=== PATIENT | female | born 1965 | race African-American/Black ===

== ENCOUNTER 2022-10-28 08:22 | Outpatient (OUT) | payer OTHER, SELFPAY ==
--- NOTE | 2022-10-28 08:15 | P.CN_ITS ---
Consult Note: HPI Data of Consult Patient: new to practice Requesting Physician: Jannie Cash NP Primary Care Provider: Vanessa Damon MD Consult Narrative Narrative: Yumiko Bradford a pleasant 56 year old female presents for evaluation of chronic low back and left hip. Today rating pain 6-7/10. Has not been evaluated since February of 2018. Recent imaging of left hip, will review. Has been seen by Dr Damon in the past and chiropractor with mild to no relief. Has tried ketorolac, cyclobenzaprine, and tumeric without benefit. Is interested in injection therapy. cc:: CC: Jannie Cash NP Review of Systems ROS Status of ROS 10 or more systems reviewed and unremarkable except as noted in history and below Musculoskeletal Reports: back pain and joint pain Exam Constitutional Documenting provider has reviewed patient's vital signs: yes Common normals: no apparent distress, oriented x3, healthy appearing, alert and well nourished General appearance: cooperative HENMT Common normals: normocephalic, hearing grossly normal bilaterally and moist oral mucous membranes Head and scalp: normocephalic Eye Common normals: PERRL Pupil: PERRL Neck & C-Spine Common normals: full ROM General: normal visual inspection Chest Common normals: inspection of chest normal Respiratory Common normals: normal respiratory effort, no retractions and no use of accessory muscles Back & Pelvis Lumbar spine/lower back: ROM limited and pain with ROM Sacroiliac joints: SI joint(s) abnormal Other: predominately axial low back pain, worse with twisting bending flexion and extension. No radiculopathy. No tenderness over GTB, negative hip exam. Tenderness over PSIS on left side. Extremity Common normals: normal to inspection and full ROM Neuro Common normals: oriented x3, CN's II-XII intact bilaterally, moves all extremities, no focal motor deficits, no sensory deficits noted and deep tendon reflexes 2+ bilaterally Sensorium/orientation: alert Gait (neuro): normal gait Motor exam: strength 5/5 throughout and no movement abnormalities noted Psych Common normals: mental status grossly normal, thought process normal, cooperative, affect normal, speech normal and activity/motor behavior normal Speech: normal speech Thought process: normal thought process Results Additional Findings Additional findings: A drug screen was completed and reviewed within the last year, and if there has not been a drug screen completed we ordered one today to monitor higher risk, state monitored pain medication use. As part of providing excellent, safe, comprehensive care, the following was completed at our patient's visit: 1. A medication reconciliation and review to ensure accurate knowledge of current/active medications, including asking our patients to inform us about any [id number] medications or herbal remedies/nutritional supplements/alternative remedies. 2. A review to specifically ensure our patients have had annual screening for: elevated body mass index (BMI), tobacco use, screening for depression, and screening for unhealthy alcohol use. When screening is concerning, patients are provided with education and the specific recommendation to discuss the concerning health issue and treatment options with their primary care provider. Assessment and Plan Assessment and Plan (1) Lumbar spondylosis: Assessment and Plan: The patient has had over 3 months of moderate to severe low back pain with functional impairment and inadequate response to conservative care including NSAIDS (unless there are contraindication such as concurrent blood thinners), multiple oral or topical pain medications, and home exercise program/physical therapy.? Patient has completed >6 weeks of guided home exercise program and/or formal physical therapy program without relief of their symptoms.? I have reviewed the imaging of the lumbar spine and no red flags were identified.? The imaging reveals radiographic findings consistent with lumbar facet arthropathy The Oswestry Disability Index was completed, and the patient scored a 28%.?? We discussed the risks and benefits of the procedure with the patient, and we are NOT planning on using sedation as outlined in the guidelines from Medicare unless there is a documented reason that sedation would be strongly recommended.?? ?The procedure will be completed with fluoroscopic guidance.? (2) Myalgia: (3) Sacroiliitis: Plan based on physical exam and x-ray findings will schedule left L3-4 L4-5 MBB x2 under fluoroscopy working towards thermal RFA if provides greater than 80% functional improvement and pain relief [employer] reviewed and signed start duloxetine 30mg HS start transdermal therapeutics topical cream TID-QID continue HEP f/u 1 month to discuss increasing duloxetine if needed and evaluate effectiveness of procedure
== END 2022-10-28 08:23 | disposition home or self-care (01) ==
PROVIDERS: PCP Family Medicine; Visit Provider Nurse Practitioner
DX: M47.816 Spondylosis without myelopathy or radiculopathy, lumbar region (principal); M46.1 Sacroiliitis, not elsewhere classified; M79.10 Myalgia, unspecified site
CPT/HCPCS: G0463

== ENCOUNTER 2022-11-23 07:34 | Day surgery (SDC) | payer OTHER, SELFPAY ==
[2022-11-23 08:00] VITALS: BP 151/97; PULSE 86; RESP 16; TEMP 36.6; O2SAT 99
--- NOTE | 2022-11-23 08:49 | W.PM.PROCNOT ---
Date of procedure: 11/23/22 Pre-op diagnosis: Lumbar spondylosis Post-op diagnosis: same as pre-op Procedure: Procedure: Left L3, 4, 5 medial branch block Medications: Bupivacaine 0.25% 4cc The patient was seen and examined in the preoperative holding area.? An informed consent was obtained and placed on the chart.? The patient was brought to the medical procedure unit and placed in the prone position.? A timeout was completed verifying correct patient, procedure site, positioning, plan, and special equipment.? Using aseptic technique, the needle was placed at left L3. Under direct fluoroscopic visualization a Quincke-tipped spinal needle was advanced to the junction of the superior articulating process with the transverse process at the designated medial branch segment.? Preceded by negative aspiration, the above-mentioned injectate was placed in 1 mL aliquots.? The procedure was completed at left L4, 5.? The needle was removed and insertion site was covered.? The patient was taken to the postprocedural recovery area and monitored for an appropriate length of time before found suitable for discharge in the company of a responsible adult. Anesthesia: Local Surgeon: Patrizia Orosco Pathology: none sent Condition: stable Disposition: same day
[2022-11-23] MEDS: LIDOCAINE HCL 2% PF 100 MG/5 ML VIAL INJ (08:51)
[2022-11-23] MEDS: BUPIVACAINE HCL 0.5% PF 50 MG/10 ML VIAL 4 ML INJ (08:51)
[2022-11-23] MEDS: TRIAMCINOLONE ACETONIDE 40 MG/ML VIAL INJ (08:52)
[2022-11-23 08:53] VITALS: BP 152/85; BP 158/96; PULSE 100; PULSE 82; RESP 16; O2SAT 96; O2SAT 97
== END 2022-11-23 08:54 | disposition home or self-care (01) ==
PROVIDERS: PCP Family Medicine; Visit Provider Anesthesiology
DX: M47.816 Spondylosis without myelopathy or radiculopathy, lumbar region (principal)
CPT/HCPCS: 64493; 64494

== ENCOUNTER 2022-12-03 08:22 | Outpatient (OUT) | payer OTHER, SELFPAY ==
--- NOTE | 2022-12-03 08:29 | PM.CN ---
Consult Note: HPI Data of Consult Patient: new to practice Requesting Physician: Jannie Cash NP Primary Care Provider: Vanessa Damon MD Consult Narrative Narrative: Yumiko Bradford a pleasant 56 year old female presents for evaluation of chronic low back and left hip. Today rating pain 5/10 in low back and left hip. Describes it as a nagging toothache, Has not tried tylenol ibuprofen at home. cc:: CC: Jannie Cash NP Review of Systems ROS Status of ROS 10 or more systems reviewed and unremarkable except as noted in history and below Musculoskeletal Reports: back pain and joint pain PFSH PFSH Medical History Back pain ?M54.9 - Dorsalgia, unspecified (ICD-10) Hypothyroid ?E03.9 - Hypothyroidism, unspecified (ICD-10) Irregular heart beat ?I49.9 - Cardiac arrhythmia, unspecified (ICD-10) Smoker ?F17.200 - Nicotine dependence, unspecified, uncomplicated (ICD-10) Surgical History H/O breast augmentation ?Z98.82 - Breast implant status (ICD-10) H/O: hysterectomy ?Z90.710 - Acquired absence of both cervix and uterus (ICD-10) Status post trigger finger release ?Z98.890 - Other specified postprocedural states (ICD-10) Meds Home Medications and Allergies Home Medications Medication Instructions Recorded Confirmed Type cyclobenzaprine 5 mg tablet 5 mg PO DAILY 10/28/22 11/23/22 History ketorolac 10 mg tablet 10 mg PO BID 10/28/22 11/23/22 History milk thistle 150 mg capsule 150 mg PO DAILY 10/28/22 11/23/22 History turmeric 400 mg capsule 1,000 mg PO DAILY 10/28/22 11/23/22 History Allergies Allergy/AdvReac Type Severity Reaction Status Date / Time No Known Drug Allergies Allergy Verified 11/23/22 07:58 Exam Constitutional Documenting provider has reviewed patient's vital signs: yes Common normals: no apparent distress, oriented x3, healthy appearing, alert and well nourished General appearance: cooperative HENMT Common normals: normocephalic, hearing grossly normal bilaterally and moist oral mucous membranes Head and scalp: normocephalic Eye Common normals: PERRL Pupil: PERRL Neck & C-Spine Common normals: full ROM General: normal visual inspection Chest Common normals: inspection of chest normal Respiratory Common normals: normal respiratory effort, no retractions and no use of accessory muscles Back & Pelvis Lumbar spine/lower back: ROM limited and pain with ROM Sacroiliac joints: SI joint(s) abnormal Other: predominately axial low back pain, worse with twisting bending flexion and extension. No radiculopathy. No tenderness over GTB, negative hip exam. Tenderness over PSIS on left side. Pain with thigh thrust, gaenslens, and JUAN. pain with external rotation of hip Extremity Common normals: normal to inspection and full ROM Neuro Common normals: oriented x3, CN's II-XII intact bilaterally, moves all extremities, no focal motor deficits, no sensory deficits noted and deep tendon reflexes 2+ bilaterally Sensorium/orientation: alert Gait (neuro): normal gait Motor exam: strength 5/5 throughout and no movement abnormalities noted Psych Common normals: mental status grossly normal, thought process normal, cooperative, affect normal, speech normal and activity/motor behavior normal Speech: normal speech Thought process: normal thought process Assessment and Plan Assessment and Plan (1) Lumbar spondylosis: (2) Myalgia: (3) Sacroiliitis: (4) Chronic left hip pain: (5) Bilateral sacroiliitis: Plan -patient did not benefit from MBB at L3-4 L4-5, continues to have low back and left hip pain without radiculopathy -increase duloxetine to 60mg HS -continue HEP -continue f/u with NS -discussed left hip injection vs referral to orthopedics for left hip spurring -f/u 6 weeks to discuss medication titration
== END 2022-12-03 08:23 | disposition home or self-care (01) ==
PROVIDERS: PCP Family Medicine; Visit Provider Nurse Practitioner
DX: M47.896 Other spondylosis, lumbar region (principal); M79.10 Myalgia, unspecified site; M46.1 Sacroiliitis, not elsewhere classified; M25.552 Pain in left hip
CPT/HCPCS: G0463

== ENCOUNTER 2024-04-04 11:24 | Emergency (ER) | payer OTHER, SELFPAY ==
[2024-04-04 11:29] VITALS: BP 121/74; PULSE 106; TEMP 37; O2SAT 98; BMI 24.2
--- OUTSIDE RECORDS SUMMARY | 2024-04-04 11:47 | XMS_ITS | CCD ---
Author Organization [facility] Inform ion Partnership [facility] Care Team Providers Care Toy Maker Name Role Phone DR VANESSA IRELAND Attending Unavailable SHU, DR VANESSA Navas Primary Care Unavailable DR VANESSA IRELAND Admitting Unavailable DR MYRANDA INGRAM Consulting Unavailable SHU, DR VANESSA Navas Consulting Unavailable Vanessa Ireland Unavailable Sherie Anderson Unavailable MD Vanessa Ireland Primary Care Provider [phone] AUSTEN Anderson Attending Provider Sherie Anderson Attending Unavailable Sherie Anderson Admitting Unavailable Vansesa Ireland Primary Care Unavailable Ana Luisa SHERIDAN, Patrizia Lauren Attending Unavailable Allergies Allergy Classification Reported Allergen(s) Allergy Type Date of Onset Reaction(s) Facility (5 sources) Corticosteroids Propensity to adverse reactions 04-10-19 Unknown [facility] Other (5 sources) Allergies Reconciled Propensity to adverse reactions Unknown [facility] Other Medications Current Medications Medication Drug Class(es) Dates Sig (Normalized) Sig (Original) Biotin (4 sources) Biotin Active cyclobenzaprine hydrochloride 5 mg oral tablet (4 sources) Muscle Relaxant Start: 09-15-2022 take 1 tablet by mouth every twenty-four hours Cyclobenzaprine HCl 5 MG 1 tablet at bedtime as needed Orally Once a day for 30 days Sep, Active ketorolac tromethamine 10 mg oral tablet (4 sources) Nonsteroidal Anti-inflammatory Drug, Cyclooxygenase Inhibitor Start: 09-15-2022 take 1 tablet by mouth every six hours at mealtime as needed Ketorolac Tromethamine 10 MG 1 tablet with food or milk as needed Orally every 6 hrs for 5 days Sep, Active lidocaine 0.05 mg/mg medicated patch (4 sources) Antiarrhythmic, Amide Local Anesthetic Start: 09-15-2022 Lidocaine 5 % 1 patch remove after 12 hours Externally Once a day for 30 days Sep, Active Milk thistle extract (4 sources) Milk Thistle Act suraj Problems Active Problems Problem Classification Problem Date Documented Da te Episodic/Chronic Anxiety disorders (5 sources) Anxiety disorder; Translations: [Anxiety disorder, unspecified] Onset: 4 Chronic Esophageal disorders (5 sources) Gastroesophageal reflux disease without esophagitis; Translations: [Gastro-esophageal reflux disease without esophagitis] Onset: 5 Chronic Other connective tissue disease (1 source) Trochanteric bursitis, left hip Episodic Other gastrointestinal disorders (5 sources) Irritable bowel syndrome characterized by constipation; Translations: [Irritable bowel syndrome with constipation] Chronic Other non-traumatic joint disorders (2 sources) Pain in left hip Episodic Residual codes; unclassified (5 sources) Normal body mass index; Translations: [Body mass index (BMI) 22.0-22.9, adult] Episodic Residual codes; unclassified (5 sources) Procedure not done; Translations: [Procedure and treatment not carried out because of patient's decision for unspecified reasons] Episodic Residual codes; unclassified (2 sources) Asymptomatic menopausal state Episodic Screening and history of mental health and substance abuse codes (2 sources) Encounter for screening for depression Episodic Spondylosis; intervertebral disc disorders; other back problems (9 sources) Other intervertebral disc degeneration, lumbosacral region; Translations: [Inflammation of sacroiliac joint] Onset: 2 Chronic Spondylosis; intervertebral disc disorders; other back problems (8 sources) Low back pain; Translations: [Low back pain, unspecified] Onset: 3 Episodic Thyroid disorders (14 sources) Hypothyroidism, unspecified; Translations: [Hypothyroidism] Onset: 8 Chronic Unclassified (1 source) LOW BACK PAIN, UNSPECIFIED; Translations: [LOW BACK PAIN, UNSPECIFIED] Onset: 2 Past or Other Problems Problem Classification Problem Date Documented Da te Episodic/Chronic Other upper respiratory infections (5 sources) Acute upper respiratory infection; Translations: [Acute upper respiratory infection, unspecified] Onset: 01-21-2015 Episodic Unclassified (1 source) Low back pain, unspecified M54.50 Results Test Name Value Interpretation Reference Range Facility XR hip LT min 2V(w/wo pelvis )*on 09-15-2022 XR hip LT min 2V(w/wo pelvis)* [address] [address] XRay Report Signed Patient: Yumiko Bradford MR#: [id number] 4 : 1965 Acct:[id number] Age/Sex: 56 / F ADM Date: 09/15/22 Loc: XD Room: Type: [facility] Attending Dr: Sherie Anderson NP-C Copies to: AUSTEN Hartman Ordering Provider: AUSTEN Hartman Date of Service: 09/15/22 XR/XR hip LT min 2V(w/wo pelvis)*: M54.16 2 views LEFT plain film COMPARISON: None HISTORY: Low back pain. LEFT hip pain. ACUTE FINDINGS: None DEGENERATIVE CHANGE: Mild LEFT hip degeneration. Large superior greater trochanter spurring. SOFT TISSUE FINDINGS: Unremarkable JOINT EFFUSION: None POSTOP CHANGES: None BONY MINERALIZATION: Adequate XR/XR hip LT min 2V(w/wo pelvis)* IMPRESSION: Mild degeneration. Large superior greater trochanter spurring. Impression dictated by: Sascha Kumar M.D.09/15/2022 2:27 PM Dictation Location: [place] [address] Transcribed By: [facility] 09/15/22 1427 Dictated By: Sascha Kumar DO 09/15/22 1426 Signed By: 09/15/22 1427 Normal [facility] XR hip LT min 2V(w/wo pelvis)* [facility] [employer] Other XR hip LT min 2V(w/wo pelvis)* [facility] [employer] Other XR hip LT min 2V(w/wo pelvis)* [address] [place] [address] [employer] Other XR hip LT min 2V(w/wo pelvis)* [place] [id number] [facility] [employer] Other XR hip LT min 2V(w/wo pelvis)* XRay Report [facility] Other XR hip LT min 2V(w/wo pelvis)* Signed [facility] Other XR hip LT min 2V(w/wo pelvis)* Patient: Yumiko Bradford MR#: [id number] [facility] Other XR hip LT min 2V(w/wo pelvis)* 4 [facility] Other XR hip LT min 2V(w/wo pelvis)* : 1965 Acct:[id number] [facility] Other XR hip LT min 2V(w/wo pelvis)* Age/Sex: 56 / F ADM Date: 09/15/22 [facility] Other XR hip LT min 2V(w/wo pelvis)* Loc: XD Room: Type: [facility] Other XR hip LT min 2V(w/wo pelvis)* Attending Dr: Sherie BOYCE [facility] Other XR hip LT min 2V(w/wo pelvis)* Copies to: AUSTEN Hartman [facility] Other XR hip LT min 2V(w/wo pelvis)* Ordering Provider: AUSTEN Hartman [facility] Other XR hip LT min 2V(w/wo pelvis)* Date of Service: 09/15/22 [facility] Other XR hip LT min 2V(w/wo pelvis)* XR/XR hip LT min 2V(w/wo pelvis)*: M54.16 [facility] Other XR hip LT min 2V(w/wo pelvis)* 2 views LEFT plain film [facility] Other XR hip LT min 2V(w/wo pelvis)* COMPARISON: None [facility] Other XR hip LT min 2V(w/wo pelvis)* HISTORY: Low back pain. LEFT hip pain. [facility] Other XR hip LT min 2V(w/wo pelvis)* ACUTE FINDINGS: None [employer] Other XR hip LT min 2V(w/wo pelvis)* DEGENERATIVE CHANGE: Mild LEFT hip degeneration. Large superior greater trochanter spurring. [facility] Other XR hip LT min 2V(w/wo pelvis)* SOFT TISSUE FINDINGS: Unremarkable [facility] Other XR hip LT min 2V(w/wo pelvis)* JOINT EFFUSION: None [facility] Other XR hip LT min 2V(w/wo pelvis)* POSTOP CHANGES: None [facility] Other XR hip LT min 2V(w/wo pelvis)* BONY MINERALIZATION: Adequate [facility] Other XR hip LT min 2V(w/wo pelvis)* XR/XR hip LT min 2V(w/wo pelvis)* [facility] Other XR hip LT min 2V(w/wo pelvis)* IMPRESSION: Mild degeneration. Large superior greater trochanter spurring. [facility] Other XR hip LT min 2V(w/wo pelvis)* Impression dictated by: Sascha Kumar M.D.09/15/2022 2:27 PM [facility] Other XR hip LT min 2V(w/wo pelvis)* Dictation Location: [place] [address] [facility] Other XR hip LT min 2V(w/wo pelvis)* Transcribed By: DURGA 09/15/22 1427 [facility] Other XR hip LT min 2V(w/wo pelvis)* Dictated By: Sascha Kumar DO 09/15/22 1426 [facility] Other XR hip LT min 2V(w/wo pelvis)* Signed By: [facility] Other XR hip LT min 2V(w/wo pelvis)* 09/15/22 1427 [facility] Other XR lumbar spine 6V w bending on 09-15-2022 XR lumbar spine 6V w bending [place] [address] [place] [address] XRay Report Signed Patient: Yumiko Bradford MR#: [id number] 4 : 1965 Acct:[id number] Age/Sex: 56 / F ADM Date: 09/15/22 Loc: XD Room: Type: [facility] Attending Dr: Sherie BOYCE Copies to: AUSTEN Hartman Ordering Provider: AUSTEN Hartman Date of Service: 09/15/22 XR/XR lumbar spine 6V w bending: M54.16 6 views Lumbar Spinewith bending HISTORY: Low back pain and LEFT hip pain COMPARISON: None POSTSURGICAL CHANGES: None BONY ALIGNMENT: No hypermobility. 6 mm L4-5 anterolisthesis FRACTURE: None DEGENERATIVE CHANGES: Extensive L5-S1 spondylosis. Moderate L3-4 no L4-5 spondylosis. Extensive lower lumbar hypertrophic facet changes. SOFT TISSUES: Unremarkable BONY MINERALIZATION:[place] te XR/XR lumbar spine 6V w bending IMPRESSION: No hypermobility. 6 mm L4-5 anterolisthesis. Extensive lower lumbar degeneration. Impression dictated by: Sascha Kumar M.D.09/15/2022 2:21 PM Dictation Location: [place] [address] Transcribed By: [facility] 09/15/22 142 Dictated By: Sascha Kumar DO 09/15/22 141 Signed By: 09/15/22 142 Normal [facility] XR lumbar spine 6V w bending XR/XR lumbar spine 6V w bending: M54.16 [email or web address] [facility] [employer] Other XR lumbar spine 6V w bending 6 views Lumbar Spinewith bending [facility] Other XR lumbar spine 6V w bending HISTORY: Low back pain and LEFT hip pain [facility] Other XR lumbar spine 6V w bending POSTSURGICAL CHANGES: None [facility] Other XR lumbar spine 6V w bending BONY ALIGNMENT: No hypermobility. 6 mm L4-5 anterolisthesis [facility] Other XR lumbar spine 6V w bending FRACTURE: None [facility] Other XR lumbar spine 6V w bending DEGENERATIVE CHANGES: Extensive L5-S1 spondylosis. Moderate L3-4 no L4-5 spondylosis. Extensive [facility] Other XR lumbar spine 6V w bending lower lumbar hypertrophic facet changes. [facility] Other XR lumbar spine 6V w bending SOFT TISSUES: Unremarkable [facility] Other XR lumbar spine 6V w bending XR/XR lumbar spine 6V w bending [facility] Other XR lumbar spine 6V w bending IMPRESSION: No hypermobility. 6 mm L4-5 anterolisthesis. Extensive lower lumbar degeneration. [facility] Other XR lumbar spine 6V w bending Impression dictated by: Sascha Kumar M.D.09/15/2022 2:21 PM [facility] Other XR lumbar spine 6V w bending Transcribed By: PWS 09/15/22 [facility] Other XR lumbar spine 6V w bending Dictated By: Sascha Kumar DO 09/15/22 141 [facility] Other XR lumbar spine 6V w bending 09/15/22 [facility] Other CULTURE URINEon 04-15-2021 CULTURE URINE Culture Observations : NO GROWTH. Normal The [facility] Comment on above: Performed By: #### U RCX #### [facility] [address] [place] [address] Dr. Alin Husain FREE T4on 04-15-2021 Free T4 [Mass/Vol] 0.85 ng/dL Normal 0.78-2.19 [facility] Comment on above: Performed By: #### F T4 #### [facility] [address] [place] [address] Dr. Alin Husain TSHon 04-15-2021 TSH 0.221 uIU/mL Critically low 0.470-4.680 [facility] Comment on above: Performed By: #### T SH #### [facility] [address] [place] [address] Dr. Alin Husain TSH RANGE SEE BELOW Normal [facility] Comment on above: Result Comment: <0.3 4 UIU/ml HYPERTHYROID 0.34-5.60 UIU/ml EUTHYROID >5.60 UIU/ml HYPOTHYROID Performed By: #### T SH #### [facility] [address] [place] [address] Dr. Alin Husain UA RANDOM W/MICROSCOPICon BACTERIA NONE SEEN Normal NONE SEEN [facility] Comment on above: Performed By: #### U AMIC #### [facility] [address] [place] [address] Dr. Alin Husain Bilirubin Ql (U) Negative Normal NEGATIVE The [facility] Comment on above: Performed By: #### U AMIC #### [facility] [address] [place] [address] Dr. Alin Husain CAST NONE SEEN Normal NONE SEEN [facility] Comment on above: Performed By: #### U AMIC #### [facility] [address] [place] [address] Dr. Alin Husain Clarity (U) CLEAR Normal CLEAR [facility] Comment on above: Performed By: #### U AMIC #### [facility] [address] [place] [address] Dr. Alin Husain Color (U) LT. YELLOW Normal YELLOW [facility] Comment on above: Performed By: #### U AMIC #### [facility] [address] [place] [address] [address] Alin Husain Crystals LM Nom (Urine sed) NONE SEEN Normal NONE SEEN [facility] Comment on above: Performed By: #### U AMIC #### [facility] [address] [place] [address] [address] Alin Husain Epithelial cells LM Ql (Urine sed) FEW Abnormal NONE SEEN /RARE The [facility] Comment on above: Performed By: #### U AMIC #### [facility] [address] [place] [address] Dr. Alin Husain Glucose Ql (U) Negative Normal NEGATIVE The [facility] Comment on above: Performed By: #### U AMIC #### [facility] [address] [place] [address] [address] Alin Husain Hemoglobin Ql (U) Negative Normal NEGATIVE The [facility] Comment on above: Performed By: #### U AMIC #### [facility] [address] [place] [address] [address] Alin Husain Ketones Ql (U) Negative Normal NEGATIVE The [facility] Comment on above: Performed By: #### U AMIC #### [facility] [address] [place] [address] [address] Alin Husain LEUKOCYTES Negative Normal NEGATIVE [facility] Comment on above: Performed By: #### U AMIC #### [facility] [address] [place] [address] [address] Alin Husain MUCOUS NONE SEEN Normal NONE SEEN [facility] Comment on above: Performed By: #### U AMIC #### [facility] [address] [place] [address] [address] Alin Husain Nitrite Ql (U) Negative Normal NEGATIVE The [facility] Comment on above: Performed By: #### U AMIC #### [facility] [address] [place] [address] Dr. Alin Husain pH (U) 6.0 [pH] Normal 5-9 [facility] Comment on above: Performed By: #### U AMIC #### [facility] [address] [place] [address] Dr. Alin Husain RBC NONE SEEN Abnormal 0-2 The [facility] Comment on above: Performed By: #### U AMIC #### [facility] [address] [place] [address] Dr. Alin Husain SPEC GRAVITY 1.010 Normal 1.005-<=1.025 The [facility] Comment on above: Performed By: #### U AMIC #### [facility] [address] [place] [address] Dr. Alin Husain UA PROTEIN Negative Normal NEGATIVE/ TRACE The [facility] Comment on above: Performed By: #### U AMIC #### [facility] [address] [place] [address] Dr. Alin Husain Urobilinogen Qn (U) 0.2 {Peggy'U}/dL Normal 0.2 - 1.0 [facility] Comment on above: Performed By: #### U AMIC #### [facility] [address] [place] [address] Dr. Alin Husain WBC NONE SEEN Normal NONE SEEN The [facility] Comment on above: Performed By: #### U AMIC #### [facility] [address] [place] [address] Dr. Alin Husain XR LSPINE MIN 4 VIEWSon 03-0 XR LSPINE MIN 4 VIEWS EXAMINATION: XR LSPINE MIN 4 VIEWS HISTORY: Low back pain for several months, no known injury COMPARISON: XR lumbar spine 12/23/2017 FINDINGS: BONES: Grade 1 anterior listhesis of L4 on 5 without appreciable pars defects. Moderate degenerative facet arthropathy L4-5, L5-S1. DISC SPACES: Moderate narrowing L4-5, L5-S1. Mild narrowing and associated degenerative endplate changes at T11-12. PARASPINOUS: Negative. No paraspinous abnormality is seen. OTHER: Negative. IMPRESSION: 1. Grade 1, bordering on grade 2 anterior listhesis of L4 on 5 and moderate degenerative disc disease, likely causing posterior pseudodisc bulging narrowing the foramen and central canal. Findings have progressed since prior study. Consider MRI for further evaluation. 2. L5-S1 moderate degenerative disc disease and facet arthropathy. Electronically authenticated by: MYRANDA INGRAM Date: 2021-04-15 11:04 Normal [facility] Vital Signs Date Time Vital Sign Value Performing Clinician Facility 10-13-2022 09:20-0400 Body height 165.1 cm Sherie Anderson Other [facility] Other 10-13-2022 09:20-0400 Body mass index (BMI) [Ratio] 22.13 kg/m2 Sherie Anderson Other [facility] Other 10-13-2022 09:20-0400 Body weight 60.33 kg Sherie Anderson Other [facility] Other 10-13-2022 09:20-0400 Diastolic blood pressure 86 mm[Hg] Sherie Anderson Other [facility] Other 10-13-2022 09:20-0400 Systolic blood pressure 150 mm[Hg] Sherie Anderson Other [facility] Other 09-15-2022 09:40-0400 Body height 165.1 cm Sherie Anderson Other [facility] Other 09-15-2022 09:40-0400 Body mass index (BMI) [Ratio] 22.13 kg/m2 Sherie Anderson Other [facility] Other 09-15-2022 09:40-0400 Body weight 60.33 kg Sherie Anderson Other [facility] Other 09-15-2022 09:40-0400 Diastolic blood pressure 98 mm[Hg] Sherie Anderson Other [facility] Other 09-15-2022 09:40-0400 Systolic blood pressure 160 mm[Hg] Sherie Anderson Other [facility] Other 09-08-2022 11:00-0400 Body height 165.1 cm Vanessa Ireland Other [facility] Other 09-08-2022 11:00-0400 Body mass index (BMI) [Ratio] 22.46 kg/m2 Vanessa Ireland Other [facility] Other 09-08-2022 11:00-0400 Body weight 61.24 kg Vanessa Ireland Other [facility] Other 09-08-2022 11:00-0400 Diastolic blood pressure 89 mm[Hg] Vanessa Ireland Other [facility] Other 09-08-2022 11:00-0400 Systolic blood pressure 144 mm[Hg] Vanessa Ireland Other [facility] Other Encounters Encounter Date Encounter Type Care Provider Facility Start: 11-23-2022 End: 11-24-2022 ambulatory Patrizia Orosco MD Facility:[facility] Start: 10-13-2022 End: 10-13-2022 ambulatory Sherie Anderson Other [facility] Other Start: 10-13-2022 Office outpatient vi sit 15 minutes Sherie Anderson [facility] Start: 09-15-2022 Office outpatient vi sit 25 minutes Sherie Anderson [facility] Start: 09-15-2022 Telephone encounter Sherie Anderson [facility] [employer] Start: 09-15-2022 End: 09-15-2022 ambulatory MD Vanessa Ireland Work Phone: [facility] Work Phone: Start: 09-15-2022 End: 09-15-2022 Patient encounter procedure MD Vanessa Ireland Work Phone: [facility] Work Phone: Start: 09-08-2022 End: 09-08-2022 ambulatory Vanessa Ireland Other [facility] Other Start: 09-08-2022 Office outpatient vi sit 15 minutes Vanessa Ireland [facility] Start: 04-15-2021 End: 04-16-[address] VANESSA IRELAND Facility: Start: 04-11-2021 Adult health examination Vanessa Ireland Other [facility] Other Procedures Date Procedure Procedure Detail Performing Clinician Start: 09-15-2022 Plain X-ray of left hip MD Vanessa Ireland Work Phone: Start: 09-15-2022 X-ray of lumbar spin e, six views including bending views MD Vanessa Ireland Work Phone: Payers Date Payer Category Payer Self-pay 2022 Unknown [id number] [id number] 2022 Unknown 1965 Unknown [id number] 2.16.84 [id number] 1965 Unknown [id number] 2.16. [id number] 1960 Unknown [id number] Unknown [id number] Unknown [id number] 2.16.8 [id number] Social History Date Type Detail Facility Unknown if ever smoked [facility] Other Sex Assigned At Sex Assigned At Bir th [facility] Other Start: 1965 Sex Assigned At Female [facility] Evaluation note 10-13-2022 Note Date & Type Note Facility 10-13-2022 Evaluation note Encounter Date Diagnosis Assessment Notes Sep, Greater trochanteric bursitis of left hip (ICD-10 - M70.62) I reviewed the x-ray of the lumbar spine and which shows degenerative changes extensive L5-S1 spondylosis moderate L3-L4 extensive lower lumbar hypertrophic facet changes. 6 mm L4-L5 anterior listhesis. Will refer to pain management Dr. Ybarra. Advised to follow-up with getting the MRI of the lumbar and DEXA scan completed. Follow-up in 6 weeks Sep, Lumbosacral spondylosis with radiculopathy (ICD-10 - M47.27) [facility] Other Evaluation note 09-15-2022 Note Date & Type Note Facility 09-15-2022 Evaluation note Encounter Date Diagnosis Assessment Notes Sep, Lumbar radiculopathy (ICD-10 - M54.16) Unable to view MRI of lumbar spine that patient states was completed l1.5 years ago. I will get TEDDY and try to pull impages. Will order xray of the lumbar 6v. Discussion of left hip pain and positive chin sign on examination. WIll order Xray of the left hip. significant past medical history of hysterectomy >20 years, Hx smoking continues 1/2PPD 40 years, will order DEXA scan to r/o osteoporosis. Pharmacological management will continue with current medication as prescribed we will add cyclobenzaprine, ketorolac and lidocaine patch. Follow-up in 4 weeks to review imaging. Medical decision making shows a new problem to me with further workup planned or suggested with the potential for extensive treatment options that were considered with the most applicable given this patient's situation as noted above. Treatment options considered include a combination of physical therapy approaches, pharmacologic management, and interventional procedures. Those most applicable to the patient were discussed at this time. Risk of complications and/or morbidity and mortality is high given that acute and chronic pain poses a threat to life and bodily function if undertreated, poorly treated or with failure to maintain adequate treatment and timely follow up. Given the serious and fluctuating nature of pain with extensive consideration for whenever pain changes, there always remains the possibility of prolonged functional impairment requiring constant patient reassessment and high-level medical decision making. The amount and complexity of data reviewed is moderate given that patient labs, radiology reports, and other test were obtained, reviewed and summarized as applicable from the physician portal and/or outside medical records. Pertinent positive and negative findings were considered in medical decision-making. Sep, Sacroiliac inflammation (ICD-10 - M46.1) Sep, Post menopausal syndrome (ICD-10 - Z78.0) Sep, Left hip pain (ICD-10 - M25.552) Sep, Encounter for screening for depression (ICD-10 - Z13.31) PHQ reviewed score 5, positive screening. Denies any thoughts of harming self or others. Advised 988 crisis line. [facility] Other Evaluation note 09-08-2022 Note Date & Type Note Facility 09-08-2022 Evaluation note Encounter Date Diagnosis Assessment Notes Aug, Low back pain, unspecified (ICD-10 - M54.50) Pt declines further PT and is open to surgery at this point. Agrees to referral to Dr. Dacosta for consultation . [employer] Other History general Narrative - Reported 09-16-2015 Note Date & Type Note Facility 09-16-2015 History general N arrative - Reported Type Medical History Acid Reflux Surgical History Saline Breast Implants Dr. Liv avalos 2008 Surgical History trigger finger surgery 09/2015 Hospitalization History SEE SURGICAL HX [facility] Other Evaluation note Note Date & Type Note Facility Evaluation note No Information [facility] [employer] Other Evaluation note Note Date & Type Note Facility Evaluation note No assessment information availa [facility] Work Phone: Summary Purpose Family History No Family History Records FoundNo Family History Records FoundNo Family History Records Found Advance Directives No Advanced Directives Records Found Advance Directive Response Recorded Date/ Time Advance Directives No September 15 023 10:48am Reason for Referral Reason Imaging from 2021 sc anned - consult and treat Diagnosis 1 Low back pain, unspe cified (M54.50) Referral Organization [facility] Referring Provider First Name Vanessa Referring Provider Last Name Shu Referring Provider Specialty Family Medi cine Referred Organization Unknown Facility Referred Provider Madhuri Dacosta Referred Provider Specialty Neurological Surgery Referral Priority Routine Reason *FU 10/26 Evaluate and treat Diagnosis 1 Greater trochanteric bursitis of left hip (M70.62) Referral Organization [facility]gery Referring Provider First Name Sherie Referring Provider Last Name Justin Referring Provider Specialty Nurse Pract itioner Referred Organization [facility] Referred Provider NirajSandra darlinghalle Referred Address [address], [place],[address] Referred Provider Specialty Pain Medicin e Referral Priority Routine General Notes Joselin Roberts 023 03:37:29 PM >Received today and waiting for office notes to be locked before sending referral Joselin Roberts 10/15/2022 09:47:37 AM >Office notes are locked. [facility] office request us to fill out form and fax referral to them and they will review the referral and call patient. Referral was fax Clinical Notes Office [phone] Chief Complaint and Reason for Visit Chief Complaint M54.16 Additional Source Comments INFORMATION SOURCE (unrecogn ized section and content) DATE CREATED AUTHOR 04/17/2021 [facility] DATE CREATED AUTHOR AUTHOR'S ORGANIZ ATION 09/24/2022 [facility] DATE CREATED AUTHOR AUTHOR'S ORGANIZ ATION 11/30/2022 [facility] REASON FOR VISIT (unrecogniz ed section and content) back painreferred by Dr. Molly muñoz Low back painNeurosurgery Office Notesreferred by Dr. Ireland Low back painXray, DEXA results Care Teams (unrecognized sec tion and content) Team Status: Active Member Role Status Dates Vanessa Ireland MD Primary Care Provider Active Team Status: Inactive Member Role Status Dates Vanessa Ireland MD Primary Care Provider Active AUSTEN Jaimes Attending Provider Active Goals (unrecognized section and content) Goals may be documented in a n alternate section FOR RECORDS PERTAINING TO PATIENTS WHO ARE OR HAVE BEEN ENROLLED IN A CHEMICAL DEPENDENCY/SUBSTANCEABUSE PROGRAM, SOME INFORMATION MAY BE OMITTED. This clinical summary was aggregated from multiple sources. Caution should be exercised in using it in the provision of clinical care. This summary normalizes information from multiple sources, and as a consequence, information in this document may materially change the coding, format and clinical context of patient data. In addition, data may be omitted in some cases. CLINICAL DECISIONS SHOULD BE BASED ON THE PRIMARY CLINICAL RECORDS. [facility] [employer] [facility]. provides no warranty or guarantee of the accuracy or completeness of information in this document.
[2024-04-04 12:47] VITALS: BP 131/85; PULSE 100; O2SAT 96
--- NOTE | 2024-04-04 13:20 | ECG_ITS ---
[facility] Test Date: 2024-04-04 Pat Name: HILLARY ARNOLD Department: Room: - Gender: Female Change Booth Attendant: : 1965 Requested By: TIFFANIE IRELAND Order Number: [id number] Reading MD: MIGUELANGEL SUN Measurements Intervals Eugene Rate: 90 P: 56 ID: [id number] QRS: 6 QRSD: 72 T: 71 QT: 346 QTc: 394 Interpretive Statements 1100 Sinus rhythm 3434 Septal myocardial infarction, age undetermined 9150 abnormal ECG Compared to ECG 04/28/2017 11:02:38 Myocardial infarct finding now present ST (T wave) deviation no longer present Electronically Signed On 04-05-2024 7:08:27 EST by MIGUELANGEL SUN
--- NOTE | 2024-04-04 13:21 | ED.GENADUL1 ---
HPI HPI - General Adult General Chief complaint: Syncope Stated complaint: DIARRHEA, FEVER Time Seen by Provider: 04/04/24 13:14 Source: patient Mode of arrival: walk-in Limitations: no limitations History of Present Illness HPI narrative: Patient is a 58-year-old female who presents to the emergency department for the evaluation of multiple syncopal episodes, diarrhea and chest discomfort. She states 2 days ago she developed cough and cold type symptoms. She denies objective fevers. She has not had any vomiting. She has now developed diarrhea and states she had 3 syncopal episodes today at home. Significant other at bedside states that she did fall and hit her head. Syncopal episodes were very brief. She states she did notice some tightness in her chest prior to the syncopal episode earlier. She has no major medical history and does not take any medications or blood thinners. Related Data Previous Rx's ?Medication ?Instructions ?Recorded pkrajzuljvgrukp-srvhhmefjqhezjr-KG 10 ml PO Q6H PRN cold symptoms 04/04/24 2 mg-30 mg-10 mg/5 mL oral syrup #200 mL (Bromfed DM) hyoscyamine sulfate 0.125 mg 0.125 mg PO Q6H PRN abdominal pain 04/04/24 tablet (Levsin) #12 tabs ondansetron 4 mg disintegrating 4 mg PO Q6H PRN nausea and 04/04/24 tablet vomiting #12 tabs Allergies Allergy/AdvReac Type Severity Reaction Status Date / Time No Known Drug Allergies Allergy Verified 04/04/24 12:45 Opioid HPI Opioid Management Most Recent Opioid Data: Last Pain Scale 4 11/23/22 08:00 11/23/22 Review of Systems ROS Constitutional Denies: fever or chills Ears, nose, mouth, and throat Denies: throat pain or nasal congestion Cardiovascular Reports: chest pain Respiratory Denies: shortness of breath or cough Gastrointestinal Reports: diarrhea; Denies: abdominal pain, nausea, vomiting or blood in stool Musculoskeletal Denies: back pain or neck pain Integumentary/Breast Denies: rash Neurological Denies: headache, numbness in extremities or weakness in extremities Hematologic/Lymphatic Denies: easy bruising or easy bleeding PFSH PFSH Medical History Back pain ?M54.9 - Dorsalgia, unspecified (ICD-10) Hypothyroid ?E03.9 - Hypothyroidism, unspecified (ICD-10) Irregular heart beat ?I49.9 - Cardiac arrhythmia, unspecified (ICD-10) Smoker ?F17.200 - Nicotine dependence, unspecified, uncomplicated (ICD-10) Surgical History H/O breast augmentation ?Z98.82 - Breast implant status (ICD-10) H/O: hysterectomy ?Z90.710 - Acquired absence of both cervix and uterus (ICD-10) Status post trigger finger release ?Z98.890 - Other specified postprocedural states (ICD-10) Social History Little interest or pleasure in doing things: not at all Feeling down, depressed, or hopeless: not at all Exam Narrative Exam Narrative: Gen.: Awake, alert, in no distress Head: Normocephalic, atraumatic ENT: Moist mucous membranes Respiratory: No respiratory distress, lungs clear bilaterally Cardio: Regular rate and rhythm Gastrointestinal: Abdomen is soft, nondistended and nontender to palpation Extremities: Moves extremities equally, no injuries noted Psych: Normal mood and affect Neuro: No focal neuro deficit Skin: Warm, dry, intact Constitutional Vital Signs, click to edit/add: Last Vital Signs Temp 98.6 F 04/04/24 11:29 Pulse 100 H 04/04/24 12:47 Resp 20 04/04/24 12:47 BP 131/85 04/04/24 12:47 Pulse Ox 96 04/04/24 12:47 O2 Del Method Room Air 04/04/24 12:47 Course Vital Signs Vital signs: Vital Signs Temperature 98.6 F 04/04/24 11:29 Pulse Rate 106 H 04/04/24 11:29 Respiratory Rate 18 04/04/24 11:29 Blood Pressure 121/74 04/04/24 11:29 Pulse Oximetry 98 04/04/24 11:29 Oxygen Delivery Method Room Air, Nasal Cannula 04/04/24 11:29 Temperature 98.6 F 04/04/24 11:29 Pulse Rate 100 H 04/04/24 12:47 Respiratory Rate 20 04/04/24 12:47 Blood Pressure 131/85 04/04/24 12:47 Pulse Oximetry 96 04/04/24 12:47 Oxygen Delivery Method Room Air 04/04/24 12:47 Medical Decision Making MDM Narrative Medical decision making narrative: Patient treated with IV fluids, she declined any need for pain medication or nausea medication in the ER. She is found to be positive for influenza A. CT of the brain, CT angio of the chest with no acute process, minimal atelectasis versus infiltrate noted on the CT angio however the patient is positive for influenza A. She was noted to have an enlarged thyroid with multiple thyroid nodules. Her TSH is low and we will add a free T3 and free T4 which can be evaluated by her doctor next week for follow-up. She was made aware of these findings. She states she was told she had thyroid problems years ago but she never followed up. She will be discharged home with Betzaida Gonzalez. Follow-up with PCP and return to the ER if symptoms change or worsen SUPERVISED APC VISIT, PHYSICIAN ATTESTATION: Based on the medical record the care appears appropriate. ? Medical Records Medical records reviewed: Yes I reviewed the patient's medical records Lab Data Lab results reviewed: Yes I reviewed the patient's lab results Labs: Lab Results 04/04/24 04/04/24 Range/Units 12:40 13:50 WBC 5.6 (4.0-11.0) 10^3/uL RBC 5.26 (4.20-5.40) 10^6/uL Hgb 16.5 H (12.0-16.0) g/dL Hct 48.4 H (36.0-48.0) % MCV 92.0 (81.0-99.0) fL MCH 31.4 (26.7-34.0) pg MCHC 34.1 (29.9-35.2) g/dL RDW 12.3 (11.0-15.0) % Plt Count 194 (150-450) 10^3/uL MPV 9.9 (9.5-13.5) fL Seg Neuts % (Manual) 71.0 (43.0-75.0) Band Neutrophils % 8.0 H (0-5) % Lymphocytes % (Manual) 10.0 L (20.5-60.0) % Monocytes % (Manual) 11.0 (1.7-12.0) % Eosinophils % (Manual) 0.0 L (0.9-7.0) % Basophils % (Manual) 0.0 L (0.2-2.0) % Neutrophils # (Manual) 3.97 (1.4-6.5) 10^3/uL Band Neutrophils # 0.4 H (0.0-0.3) 10^3/uL Lymphocytes # (Manual) 0.56 L (1.20-3.80) 10^3/uL Monocytes # (Manual) 0.61 (0.30-0.80) 10^3/uL Eosinophils # (Manual) 0.00 (0.00-0.70) 10^3/uL Basophils # (Manual) 0.00 (0.00-0.10) 10^3/uL PT 10.5 (9.0-11.6) sec INR 0.99 Sodium 136 (136-145) mmol/L Potassium 3.9 (3.5-5.1) mmol/L Chloride 100 (98-107) mmol/L Carbon Dioxide 24.1 (21.0-32.0) mmol/L Anion Gap 15.8 BUN 13.0 (7.0-18.0) mg/dL Creatinine 1.11 H (0.55-1.02) mg/dL Est GFR ( Amer) >60 (>=60 mL/min/1.73m^2) Est GFR (Non-Af Amer) 50 L (>=60 mL/min/1.73m^2) BUN/Creatinine Ratio 11.7 Glucose 102 (74-106) mg/dL Lactate 1.0 (0.4-2.0) mmol/L Calcium 9.3 (8.5-10.1) mg/dL Magnesium 2.0 (1.8-2.4) mg/dL Total Bilirubin 0.4 (0.2-1.0) mg/dL AST 37 (15-37) U/L ALT 41 (14-59) U/L Alkaline Phosphatase 69 (46-116) U/L Troponin I High Sens 9.3 (4.0-51.3) pg/mL Total Protein 7.5 (6.4-8.2) g/dL Albumin 4.2 (3.4-5.0) g/dL Globulin 3.3 g/dL Albumin/Globulin Ratio 1.3 Lipase 55.0 (16.0-77.0) U/L TSH 0.068 L (0.358-3.740) uIU/mL Influenza Type A Ag Positive A Influenza Type B Ag Negative SARS-CoV-2 Ag (CV2AG) Negative (NEGATIVE) Imaging Data CT of the brain/CT angio chest: Attestation: I have reviewed the pertinent imaging results. ECG Data Attestation: I personally reviewed and interpreted this ECG as follows: (Normal sinus rhythm at a rate of [address] elevation or ectopy. EKG reviewed by attending physician) Discharge Plan Discharge Chief Complaint: Syncope Clinical Impression: Syncope, Influenza A, Low TSH level Patient Disposition: Home, Self-Care Time of Disposition Decision: 14:37 Condition: Good Prescriptions / Home Meds: New zqskrpgnatqlcjs-ewmdfiqkf-RZ [Bromfed DM] 2-30-10 mg/5 mL syrup 10 ml PO Q6H PRN (Reason: cold symptoms) Qty: 200 0RF hyoscyamine sulfate [Levsin] 0.125 mg tablet 0.125 mg PO Q6H PRN (Reason: abdominal pain) Qty: 12 0RF ondansetron 4 mg tablet,disintegrating 4 mg PO Q6H PRN (Reason: nausea and vomiting) Qty: 12 0RF Print Language: Setswana Instructions: Syncope (ED), Influenza (ED) Referrals: Vanessa Damon MD [Primary Care Provider] - 1 week
[2024-04-04 13:27] LABS: Hematocrit 48.4 % (36.0-48.0); Hemoglobin 16.5 g/dL (12.0-16.0); Mean Corpuscular HGB Conc 34.1 g/dL (29.9-35.2); Mean Corpuscular Hemoglobin 31.4 pg (26.7-34.0); Mean Platelet Volume 9.9 fL (9.5-13.5); Platelet Count 194 10^3/uL (150-450); Red Blood Count 5.26 10^6/uL (4.20-5.40); Red Cell Distribution Width 12.3 % (11.0-15.0); White Blood Count 5.6 10^3/uL (4.0-11.0)
[2024-04-04 13:42] LABS: INR 0.99; Prothrombin Time 10.5 sec (9.0-11.6)
[2024-04-04 13:47] LABS: Band Neutrophils Absolute 0.4 10^3/uL (0.0-0.3); Lymphocytes Absolute Manual 0.56 10^3/uL (1.20-3.80); Monocytes Absolute Manual 0.61 10^3/uL (0.30-0.80); Segmented Neut Absolute Manual 3.97 10^3/uL (1.4-6.5)
[2024-04-04 13:56] LABS: Alanine Aminotransferase 41 U/L (14-59); Albumin Globulin Ratio 1.3; Albumin Level 4.2 g/dL (3.4-5.0); Alkaline Phosphatase 69 U/L (46-116); Anion Gap 15.8; Aspartate Amino Transferase 37 U/L (15-37); BUN Creatinine Ratio 11.7; Bilirubin Total 0.4 mg/dL (0.2-1.0); Calcium 9.3 mg/dL (8.5-10.1); Carbon Dioxide 24.1 mmol/L (21.0-32.0); Chloride 100 mmol/L (98-107); Estimated GFR (African America >60 (>=60 mL/min/1.73m^2); Estimated GFR (Non-African Ame 50 (>=60 mL/min/1.73m^2); Globulin 3.3 g/dL; Glucose 102 mg/dL (74-106); Potassium 3.9 mmol/L (3.5-5.1); Sodium 136 mmol/L (136-145); Total Protein 7.5 g/dL (6.4-8.2)
[2024-04-04] MEDS: 0.9 % SODIUM CHLORIDE 1,000 ML 999 ML IV (14:04)
[2024-04-04 14:07] LABS: Thyroid Stimulating Hormone 0.068 uIU/mL (0.358-3.740); Troponin I High Sensitivity 9.3 pg/mL (4.0-51.3)
[2024-04-04 14:18] LABS: Internal Control Within Normal Limits; SARS-CoV-2 Ag NEGATIVE (NEGATIVE)
[2024-04-04 14:19] LABS: Influenza Virus A Antigen Positive; Influenza Virus B Antigen Negative; Internal Control Within Normal Limits
[2024-04-04 15:04] LABS: Free T4 0.82 ng/dL (0.76-1.46)
[2024-04-04 15:11] LABS: Free T3 2.22 pg/mL (2.18-3.98)
== END 2024-04-04 15:12 | disposition home or self-care (01) ==
PROVIDERS: Physician Assistant; Emergency Provider Student in an Organized Health Care Education/Training Program; PCP Family Medicine
DX: R55 Syncope and collapse (principal); J10.1 Influenza due to other identified influenza virus with other respiratory manifestations; R19.7 Diarrhea, unspecified; R07.89 Other chest pain; Z90.710 Acquired absence of both cervix and uterus; E04.2 Nontoxic multinodular goiter; R94.6 Abnormal results of thyroid function studies
CPT/HCPCS: 36415; 70450; 71275; 80053; 81001; 83605; 83690; 83735; 84439; 84443; 84481; 84484; 85007; 85027; 85610; 87804; 87811; 93005; 96360; 99285; Q9967